=== PATIENT | male | born 1980 | race Caucasian/White ===

== ENCOUNTER 2018-10-09 09:21 | Day surgery (SDC) | payer OTHER ==
[2018-10-09] MEDS: SOD CHLORIDE 0.9% 1,000 ML IV (06:00)
[2018-10-09] MEDS ORDERED: HYDROmorphONE 1 MG/5 ML IV SYRINGE IV (10:30)
[2018-10-09] MEDS ORDERED: FENTAnyl 50 MCG/ML VIAL IV (10:30)
[2018-10-09] MEDS ORDERED: ONDANSETRON 4 MG INJ IV (10:30)
[2018-10-09] MEDS ORDERED: OXYCODONE/ACETAMINOPHEN (5/325) TAB PO (10:30)
[2018-10-09] MEDS ORDERED: PROPOFOL 20 ML (10:58)
[2018-10-09] MEDS ORDERED: MIDAZOLAM 1 MG/ML 2 ML INJ (10:58)
[2018-10-09] MEDS ORDERED: FENTAnyl 50 MCG/ML VIAL (10:58)
[2018-10-09] MEDS ORDERED: CEFAZOLIN 1 GM INJ (10:58)
[2018-10-09] MEDS ORDERED: CLINDAMYCIN 900 MG/D5W (PMX) 50 ML IVPB ×2 (11:00→11:27)
[2018-10-09] MEDS: BUPIVACAINE 0.5%/EPI (SDV) 30 ML INJ (11:21)
[2018-10-09] MEDS ORDERED: ONDANSETRON 4 MG INJ (11:24)
[2018-10-09] MEDS ORDERED: DEXAMETHASONE 4 MG/ML 5 ML INJ (11:24)
[2018-10-09] MEDS ORDERED: METOCLOPRAMIDE 10 MG INJ (11:24)
[2018-10-09] MEDS ORDERED: KETOROLAC 30 MG INJ (11:24)
== END 2018-10-09 13:05 | disposition home or self-care (01) ==
LOC: SDS 09:21
DX: D17.22 Benign lipomatous neoplasm of skin and subcutaneous tissue of left arm (principal)
CPT/HCPCS: 21552; 88307